=== PATIENT | male | born 1945 | race Caucasian/White ===

== ENCOUNTER 2019-07-09 16:07 | Emergency (ER) | payer OTHER ==
[~2019-07-09] VITALS: Ht 175.3 cm; Wt 112.0 kg
[~2019-07-09 16:07] MED LIST: AMLODIPINE BESY10 MG PO; BENZONATATE100 MG PO; FUROSEMIDE20 MG PO; LISINOPRIL20 MG PO; NAPROXEN250 MG PO; VENTOLIN HFA18 GM INH
--- OUTSIDE RECORDS SUMMARY | 2019-07-09 16:08 | XMS ---
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 EArturo VISIT COUNT (12 MO.) 1 [facility] Katt Shah[address] TOTAL 3 NOTE: Visits indicate total known visits. ED/UCC VISIT TRACKING (12 MO.) 07/09/2019 16:07 [facility] TYPE: Emergency COMPLAINT: - CATHETER PROBLEM 06/17/2019 11:09 [facility] TYPE: Emergency COMPLAINT: - URINE PROBLEM DIAGNOSES: - Essential (primary) hypertension - Nicotine dependence, unspecified, uncomplicated - Retention of urine, unspecified [facility] DIAGNOSES: - Headache (Adult - New Onset Or New Symptoms) - Nausea - Shrt meg alext inject/tear, not ntrct - headache INPATIENT VISIT TRACKING (12 MO.) No inpatient visits to display in this time frame [email or web address]
== END 2019-07-09 17:05 | disposition home or self-care (01) ==
LOC: ED 16:07
DX: T83.098A Other mechanical complication of other urinary catheter, initial encounter (principal); I10 Essential (primary) hypertension; F17.200 Nicotine dependence, unspecified, uncomplicated; Z88.5 Allergy status to narcotic agent; Z88.8 Allergy status to other drugs, medicaments and biological substances; Z79.899 Other long term (current) drug therapy
CPT/HCPCS: 51702; 99283-25